=== PATIENT | male | born 1990 | race Two or more races ===

== ENCOUNTER 2021-10-04 16:42 | Emergency (ER) | payer OTHER ==
--- NOTE | 2021-10-04 18:30 | NUR ---
Patient discharged to home in stable condition. Written and verbal after care instructions given. Patient verbalizes understanding of instruction.
== END 2021-10-04 18:30 | disposition home or self-care (01) ==
LOC: ER 17:02
DX: M25.531 Pain in right wrist (principal); M79.641 Pain in right hand
CPT/HCPCS: 73110; 73130-TC